=== PATIENT | male | born 1990 | race Caucasian/White ===

== ENCOUNTER 2025-08-17 21:01 | Outpatient (OUT) | payer BC, SELFPAY ==
--- OUTSIDE RECORDS SUMMARY | 2025-08-03 02:15 | XMS_ITS ---
Author Organization [facility] vices Address [address] [place], [place] [id number] Care Team Providers Care Heater Engineer Helper Name Role Phone Maria G Sandy Primary Care Provider [phone] Jeo Mathur Unavailable [phone] REASON FOR VISIT insomnia Social History Sex Assigned At : Social History Observation Description Sex Assigned At Male Encounters Encounter Location Date Provider Diagnosis Main [address] [place] [id number] 08/03/2025 Joe Barbosa Plan Of Treatment Next Appt Details Provider Name:Joe Barbosa, 10/05/2025 05:45:00 PM, [address], [place], [id number], Progress Notes * Waldo ASHLEY III RDOB: 1990 (35 yo M)Acc No.[id number]:08/03/2025 Medical Note Patient: Waldo Andre III :?Joe JunedDOB:1990???Age:35 Y???Sex:Male Date:08/03/2025Phone:[phone]:JG [address]AMS DR [id number]:Maria G Sadny Subjective: * Chief Complaints: * I nsomnia Billing Information: * Procedure Codes: * Electronic signature of KRYSTEN Kat on 08/17/2025 at 09:07 PM ESTSign off status: Pending * Provider: Drea Barbosa Date: 10/04/2024 Generated for Printing/Faxing/eTransmitting on:?08/17/2025 09:07 PM EST
--- OUTSIDE RECORDS SUMMARY | 2025-08-03 02:15 | XMS_ITS ---
Author Organization [facility] vices Address [address] [place] [id number] Care Team Providers Care Yarder Puncher Name Role Phone Maria G Sandy Primary Care Provider [phone] Joe Mathur Unavailable [phone] Allergies No Known Allergies REASON FOR VISIT insomnia Medications Medication SIG (Take, Route, Frequency, Duration) Notes Start Date End Date Status traZODone HCl 50 MG Tablet up to 3 Orally Once a day; Duration: 30 days 5Active Social History Sex Assigned At : Social History Observation Description Sex Assigned At Male Vital Signs Temperature 97.0 degrees Fahrenheit 08/03/20 25 Blood pressure systolic 131 mm Hg 08/03/20 25 Blood pressure diastolic 82 mm Hg 025 Heart Rate 88 /min 08/03/2025 Respiratory Rate 16 /min 08/03/2025 Height 71 in 08/03/2025 Weight 279.3 lbs 08/03/2025 BMI 38.95 kg/m2 08/03/2025 Oximetry 96 % 08/03/2025 Height-cm 180.34 cm 08/03/2025 Weight-kg 126.69 kg 08/03/2025 Jonna Lundy 08/03/2025 0 7:41:26 AM EST > Encounters Encounter Location Date Provider Diagnosis Main [address] [place], [place] [id number] 08/03/2025 Joe Barbosa Primary insomnia F51 .01 Assessments Encounter Date Diagnosis (ICD Code) Assessment Notes Treatment Notes Treatment Clinical Notes Section Notes 08/03/2025 Primary insomnia (ICD-10 - F51.0 1) Continue the trazodone at up to 150 get sleep study done and follow with sleep medicine pt will go to the Er with any new or worsening symptoms of but not limited to chest pain, shortnessof breath, blurry vision, or headaches Plan Of Treatment Medication Medication Name Sig Start Date Stop Date Notes traZODone HCl 50 MG Tablet up to 3 Orally Once a day; Duration: 30 days 07/07/2025 Treatment Notes Assessment Notes Primary insomnia Continue the trazodone at up to 150 get sleep study done and follow with sleep medicine pt will go to the Er with any new or worsening symptoms of but not limited to chest pain, shortness of breath, blurry vision, or headaches Next Appt Details Follow Up: 2 Months, Reason: wellness Provider Name:Joelen Barbosa, 10/05/2025 05:45:00 PM, [address] [place], [place], [id number], History and Physical Notes * HPI (History of Present Illness) CategorySub-CategoryDetailNotesCategory NotesInsomnia Pt was started on trazodone one month ago he got up to 150mg, but this caused him too much grogginess in the mornings is currently taking 100mg on weekdays and 150mg on weekends reports sleep has not improved his girlfriend reports he is snoring and gasping for air in his sleep several times a night was also referred to sleep medicine and on 08/17/2025 has a sleep study Examination CategorySub-CategoryDetailNotesCategory NotesGeneral ExaminationGeneral appearance:alert, pleasant, well-nourished and in no acute distressHead: normocephalic, atraumaticEyes:pupils equal, round, reactive to light and accommodationEars:auditory canal clear, tympanic membrane intact and clear bilaterallyNose:nares patent , no lesions , sinuses nontender bilaterallyHeart: regular rate and rhythm without murmurs, gallops, clicks or rubsLungs:clear to auscultation bilaterally, with good air movement and no rales, rhonchi or wheezesSkin:skin is warm and dry, with no rashes, good skin turgor and normal hair distributionExtremities:normal extremity with no clubbing, cyanosis or edema , full range of motionPsych:alert and oriented x 3 , cooperative with exam , maintains good eye contact , normal affect / mood , speech is clear and coherentOral cavity:tongue is midline , palate normal , mucosa moistCQM ExceptionsCurrently taking Aspirin:Aspirin Use:: No Progress Notes * Waldo ASHLEY III RDOB: 1990 (35 yo M)Acc No.[id number]:08/03/2025 Medical Note Patient: Waldo Andre III :Oscar StuddDOB:1990???Age:35 Y???Sex:Male Date:08/03/2025Phone:[phone]:[address], [place], [id number]:Maria G Sandy Subjective: * Chief Complaints: * I nsomnia * HPI: ???Insomnia:?Pt was started on trazodone one month ago he got up to 150mg, but this caused him too much grogginess in the mornings is currently taking 100mg on weekdays and 150mg on weekends reports sleep has not improved his girlfriend reports he is snoring and gasping for air in his sleep several times a night was also referred to sleep medicine and on 08/17/2025 has a sleep study. * ROS: ???Negative except mentioned above in the HPI. * Medical History: Insomnia Medical History Verified? * Surgical History: Denies Past Surgical History.? Surgical History verified.? * Hospitalization/Major Diagno stic Procedure: Dog Bite 1989? Hospitalization Verified.? * Family History: F ather: alive. M other: alive. P aternal Grand Father: . P aternal Grand Mother: . M aternal Grand Father: alive. M aternal Grand Mother: . F amily History Verified.. Cancer. * Medications: T akingtraZODone HCl 50 MG Tablet 1 tablet once a day for 7 days, 2 tablets once a day for 7 days, 3 tablets once a day for 16 days Orally Taking traZODone HCl 50 MG Tablet 1 tablet once a day for 7 days, 2 tablets once a day for 7 days, 3 tablets once a day for 16 days Orally DiscontinuedTerbinafine HCl 250 MG Tablet 1 tablet Orally Once a day Terbinafine HCl 1 % Cream 1 application Externally twice a day , Notes to Pharmacist: as neededClobetasol Propionate 0.05 % Ointment 1 application Externally Twice a day Medication List reviewed and reconciled with the patientDiscontinued Terbinafine HCl 250 MG Tablet 1 tablet Orally Once a day Discontinued Terbinafine HCl 1 % Cream 1 application Externally twice a day , Notes to Pharmacist: as neededDiscontinued Clobetasol Propionate 0.05 % Ointment 1 application Externally Twice a day Medication List reviewed and reconciled with the patient * Allergies: N .K.D.A.yesAllergies Verified. Objective: * Vitals: T emp:97.0F, Wt:279.3lbs, Ht: 71 in, BMI:38.95Index, BP:131/82mm Hg, HR:88/min, RR:16/min, Pain scale:01-10, Oxygen sat %:96%, Wt-k.69 kg, Ht-cm: 180.34 cm, Body Surface Area: 2.52. Jonna Lundy 08/03/2025 07:41:26 AM EST >. * Examination: ???CQM Exceptions: ?Currently taking Aspirin:? Aspirin Use:?No?General Examination: ?General appearance:?alert, pleasant, well-nourished and inno acute distress.?Head:?normocephalic, atraumatic.?Eyes:?pupils equal, round, reactive to light and accommodation.?Ears:?auditory canal clear, tympanic membrane intact and clear bilaterally.?Nose:?nares patent , no lesions , sinuses nontender bilaterally.?Oral cavity:?tongue is midline , palate normal , mucosa moist.?Skin:?skin is warm and dry, with no rashes, good skin turgor and normal hair distribution.?Heart:?regular rate and rhythm without murmurs, gallops, clicks or rubs.?Lungs:?clear to auscultation bilaterally, with good air movement and no rales, rhonchi or wheezes.?Extremities:?normal extremity with no clubbing, cyanosis or edema , full range of motion.?Psych:?alert and oriented x 3 , cooperative with exam , maintains good eye contact , normal affect / mood , speech is clear and coherent.??? Assessment: * Assessment: 1.?Primary insomnia - F51.01 (Primary)??? Plan: * Treatment: Refill traZODone HCl Tablet, 50 MG, up to 3, Orally, Once a day, 30 days, 90, Refills 0.?? Notes: Continue the trazodone at up to 150 get sleep study done and follow with sleep medicine pt will go to the Er with any new or worsening symptoms of but not limited to chest pain, shortnessof breath, blurry vision, or headaches ?? * Procedure Codes: 3 079F HTN DIAST BP = 80-117742R HTN SYST BP = 130 - 139 * Follow Up: 2 Months (Reason: wellness) Billing Information: * Visit Code: 54701 Office Visit Est 20-29 minutes. * Procedure Codes: 3079F HTN DIAST BP = 80-89. 3075F HTN SYST BP = 130 - 139. * ign off status: Completed true * Provider: Drea Barbosa Date: 10/04/2024 Generated for Printing/Faxing/eTransmitting on:?08/17/2025 09:06 PM EST
--- OUTSIDE RECORDS SUMMARY | 2025-08-17 21:07 | XMS_ITS | Clinical Summary ---
Author Organization [facility] tem Address [facility] [id number] [place] [address] Care Team Providers Care Crane Operator Name Role Phone No Pcp, No Pcp Primary Care Provider Unavailabl e Allergies No known active allergies Medications No known medications Social History Tobacco UseTypesPacks/DayYears UsedDateSmoking Tobacco: Never AssessedChildcare AnswerDate IvcwneofTaxxsgnkhSoxhxyj74/12/2019EmploymentAnswerDate Recorded CrrwfxzmdlPwljenn80/12/2019Sex and Gender InformationValueDate RecordedSex Assigned at BirthNot on fileLegal IuxLcni6403/25/2015 11:37 AM EDTGender Identity Not on fileSexual OrientationNot on file Last Filed Vital Signs Vital SignReadingTime TakenCommentsBlood Swaednki747/5605109/14/2024 11:47 AM EST Lfhbu33302/26/2025 11:47 AM WMGLsdpxxboglk88.9 ??C (98.4 ??F)09/14/2024 11:47 AM ESTRespiratory Ivtv803709/14/2024 11:47 AM ESTOxygen Plybmtwxao80%09/14/2024 11:47 AM ESTInhaled Oxygen Concentration--Dehuue609.2 kg (265 lb)09/14/2024 11:47 AM ZLJChicge686 cm (6' 2 )09/14/2024 11:47 AM ESTBody Mass Index34.02009/14/2024 11:47 AM EST Plan of Treatment Not on file Medical Devices Not on file Insurance * Guarantor: Waldo Woodard IIIAccount TypeRelation to PatientDate of BirthPhoneBilling AddressPersonal/GfpxnvNfnv1990 [facility] [place] [address] Care Teams Team MemberRelationshipSpecialtyStart DateEnd Date No Pcp, No Pcp [place] [id number] [facility]
--- OUTSIDE RECORDS SUMMARY | 2025-08-17 21:07 | XMS_ITS | Patient Health Record ---
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 Diagnosis 1 Primary insomnia (F5 1.01) Referral Organization Main Referring Provider First Name Joe Referring Provider Last Name Chelsey Referring Provider Speciality Physician [place] [facility] Referred Provider [facility] Referred Provider Specialty Sleep Medici ne Referral Priority Routine Medications Medication SIG (Take, Route, Frequency, Duration) Notes Start Date End Date Status traZODone HCl 50 MG Tablet up to 3 Orally Once a day; Duration: 30 days 5Active Social History Tobacco Use: Social History Observation Description Date Details (start date - stop date) Never Smoker NA - NA Sex Assigned At : Social History Observation Description Sex Assigned At Male Social History Social DeterminantsSocial InfoQuestionAnswerNotesPRAPAREDate Completed/Updated: 07/07/2025What is your current housing situation?I have housingAre you worried about losing your housing?NoWhat is the highest level of school that you have finished?More than high schoolWhat 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 Check all that applyI do not have problems meeting my needsHas lack of transportation kept you from medical appointments, meetings, work or from getting things needed for daily living?No How often do you see or talk to people that you care about and feel close to? (For example: talkingto friends on the phone, visiting friends or family, going to bahai or club meetings)More than 5 times a weekHow stressed are you? Stress is when someone feels tense, nervous, anxious, or can't sleep at nightbecause their mind is troubledA little bitIn the past year have you spent more than 2 nights in a row in a fpc, assisted, long term center, orjuvenile correctional facility?YesAre you a refugee?NoWhat country are you from?[place]Do you feel physically and emotionally safe where you currently live?YesIn the past year, have you been afraid of your partner or ex-partner?NoPRAPARE Score:2 Household:Social InfoQuestionAnswerNotesHouseholdNumber of adults in household:2 Drugs/Alcohol/Caffeine:Social InfoQuestionAnswerNotesDrugsHave you used drugs other than those for medical reasons in the past 12 months?NoCAGE-AID Questionnaire (2018 Edition)Have you ever felt that you ought to cut down on your drinking or drug use?NoHave people annoyed you by criticizing your drinking or drug use?NoHave you ever felt bad or guilty about your drinking or drug use? NoHave you ever had a drink or used drugs first thing in the morning to steady your nerves or to get rid of a hangover?NoCAGE-AID Fczey3MjixlhvmhmvklfFckvgcre CaffeineIntake:2-3 cups per dayTobacco Use:Social InfoQuestionAnswerNotesTobacco Control (Standard)Tobacco use:NonsmokerTobacco Use/SmokingTobacco use:nonsmoker Additional DetailsCategorySocial InfoOptionsDetailsMiscellaneous:Occupation: works full-timeCulture/Language BarrierNoEducation LevelCollegeBarriers to LearningNoneLearning PreferenceDoing or practicingHow often do you need to have someone help you read instructionsNeverSafetyPatient feels safe in relationships YesDrugs/Alcohol/Caffeine:Do you drink alcohol?Socially Problems Problem Type SNOMED Code ICD Code Onset Dates Problem Status W/U Status Risk Notes Problem Primary insomnia (5147887) Primary insomn ia (F51.01) Activeconfirmed Vital Signs Heart Rate 88 /min 08/03/2025 Jonna Lundy 08/03/2025 07:41:26 AM EST > Temperature 97.0 degrees Fahrenheit 08/03/2025 Jonna Avila 08/03/2025 07:41:26 AM EST > Respiratory Rate 16 /min 08/03/2025 Allegra Lundy 08/03/2025 07:41:26 AM EST > Height-cm 180.34 cm 08/03/2025 Jonna Lundy 08/03/2025 07:41:26 AM EST > Oximetry 96 % 08/03/2025 Jonna Lundy 08/03/2025 07:41:26 AM EST > Blood pressure diastolic 82 mm Hg 08/03/2025 Jonna August 08/03/2025 07:41:26 AM EST > Weight-kg 126.69 kg 08/03/2025 Jonna Lundy 08/03/2025 07:41:26 AM EST > Height 71 in 08/03/2025 Jonna Lundy 08/03/2025 07:41:26 AM EST > Blood pressure systolic 131 mm Hg 08/03/2025 Jonna Avila 08/03/2025 07:41:26 AM EST > Weight 279.3 lbs 08/03/2025 Jonna Lundy 08/03/2025 07:41:26 AM EST > BMI 38.95 kg/m2 08/03/2025 Jonna Lundy 08/03/2025 07:41:26 AM EST > Encounters Encounter Location Date Provider Diagnosis Main [address] , [place] [id number] 07/07/2025 Joe Studd Primary insomnia F51 .01 ; Dietary counseling Z71.3 ; Exercise counseling Z71.82 and BMI 37.0-37.9, adult Z68.37 Main [address] [place], [place] [id number] 08/03/2025 Joe Studd Primary insomnia F51 .01 [address] [place] [address] 08/27/2024 Geno Pirzada Tinea pedis of left foot B35.3 and Rash and nonspecific skin eruption R21 [address] [place] [address] 09/29/2024 Geno Pirzada [address] [place] [address]/12/2025Yasmin Pirzada Assessments Encounter Date Diagnosis (ICD Code) Assessment Notes Treatment Notes Treatment Clinical Notes Section Notes 08/03/2025 Primary insomnia (ICD-10 - F51.0 1) Continue the trazodone at up to 150 get sleep study done and follow with sleep medicine pt will go to the Er with any new or worsening symptoms of but not limited to chest pain, shortnessof breath, blurry vision, or headaches 07/07/2025Primary insomnia (ICD-10 - F51.01) At this time I will restart trazodone 50mg for week one if he does not have a response here can increase to 100mg after another week with no response can increase to up to 150mg discussed that the lowest effective dose is where he should stop if this is 50 mg do not increase to 100mg will follow in 4 weeks have also referred to sleep medicine for a sleep study 08/27/2024Tinea pedis of left foot (ICD-10 - B35.3)08/27/2024Rash and nonspecific skin eruption (ICD-10 - R21)07/07/2025Dietary counseling (ICD-10 - Z71.3)07/07/2025Exercise counseling (ICD-10 - Z71.82)07/07/2025MI 37.0-37.9, adult (ICD-10 - Z68.37) Plan Of Treatment Next Appt Details Provider Name:Joe Barbosa, 10/05/2025 05:45:00 PM, [address], [place], [phone], Insurance Providers Payer Name Payer Address Payer Phone Subscriber Number Group Number Insured Name Patient Relationship to Insured Coverage Start Date Coverage End Date Riki Coon [address] [place], [place] [id number] Waldo Woodard III Self - patient is the insured 3 Medical (General) History Medical History History ICD Code Insomnia G47.00 Hospitalization History Reason Date(Month/Year) Dog Bite 1989
--- OUTSIDE RECORDS SUMMARY | 2025-08-17 21:07 | XMS_ITS | Clinical Summary ---
Author Organization [facility] Address [address], [address] [place] [address] Care Team Providers Care Silk Trimmer Name Role Phone Unavailable Primary Care Provider Unavailabl e Social History Tobacco UseTypesPacks/DayYears UsedDateSmoking Tobacco: Never AssessedSex and Gender InformationValueDate RecordedSex Assigned at BirthNot on fileLegal Sex Male10/01/2012 11:26 PM ESTGender IdentityNot on fileSexual OrientationNot on file Plan of Treatment Not on file
== END 2025-08-17 21:02 | disposition home or self-care (01) ==
LOC: SLEEP 21:02
DX: G47.33 Obstructive sleep apnea (adult) (pediatric) (principal)
CPT/HCPCS: 95810